=== PATIENT | male | born 1930 | race Two or more races ===

== ENCOUNTER 2017-05-25 23:01 | Emergency (ER) | payer MEDICARE ==
[~2017-05-25] VITALS: Ht 160 cm; Wt 53.5 kg
[2017-05-25] MEDS ORDERED: HYDRALAZINE HCL10 MG ORAL (23:15)
[2017-05-25] MEDS ORDERED: ASPIRIN81 MG ORAL (23:15)
[2017-05-25] MEDS ORDERED: ATORVASTATIN CA40 MG ORAL (23:15)
[2017-05-25] MEDS ORDERED: BUMETANIDE1 MG ORAL (23:15)
[2017-05-25] MEDS ORDERED: OMEPRAZOLE20 M2 ORAL (23:15)
[2017-05-25] MEDS ORDERED: ELIQUIS2.5 MG PO (23:15)
[2017-05-25] MEDS ORDERED: AMLODIPINE BESY10 MG ORAL (23:15)
[2017-05-25] MEDS ORDERED: ISOSORBIDE MONO20 MG PO (23:15)
[2017-05-25] MEDS ORDERED: TAMSULOSIN HCL0.4 MG ORAL (23:15)
[2017-05-25 23:30] VITALS: BP 125/75
[2017-05-25 23:45] LABS: BASOPHILS % (AUTO) 1.9 % (0.0-2.0); EOSINOPHILS % (AUTO) 5.6 % (0.0-3.0); LYMPHOCYTES % (AUTO) 21.7 % (20.0-45.0); MEAN CORPUSCULAR HEMOGLOBIN 33.5 PG (27.0-31.0); MEAN CORPUSCULAR HGB CONC 34.3 G/DL (32.0-36.0); MEAN CORPUSCULAR VOLUME 98 FL (80-99); MEAN PLATELET VOLUME 5.1 FL (6.5-10.1); MONOCYTES % (AUTO) 12.9 % (1.0-10.0); NEUTROPHILS % (AUTO) 57.9 % (45.0-75.0); PLATELET COUNT 179 K/UL (150-450); RED BLOOD COUNT 2.62 M/UL (4.70-6.10); RED CELL DISTRIBUTION WIDTH 14.4 % (11.6-14.8); WHITE BLOOD COUNT 7.4 K/UL (4.8-10.8)
[2017-05-25] MEDS ORDERED: Diltiazem 25mg/5ml IV ONE (23:45)
[2017-05-25 23:52] LABS: INR 1.1 (0.9-1.1); PROTHROMBIN TIME 11.2 SEC (9.30-11.50)
[2017-05-25 23:56] LABS: TROPONIN I < 0.30 ng/mL (<=0.30)
[2017-05-25 23:59] LABS: ALANINE AMINOTRANSFERASE 23 U/L (3-41); ALBUMIN/GLOBULIN RATIO 1.1 (1.0-2.7); ASPARTATE AMINO TRANSFERASE 36 U/L (5-40); CALCIUM 8.9 mg/dL (8.6-10.2); CARBON DIOXIDE 24 mEQ/L (20-30); CREATININE 1.7 mg/dL (0.7-1.2); HEMOLYSIS 2
[2017-05-26] LABS: ANION GAP 12 (5-15); CHLORIDE 101 mEQ/L (98-107); POTASSIUM 3.9 mEQ/L (3.4-4.9); SODIUM 137 mEQ/L (135-145)
[2017-05-26 00:11] LABS: CKMB 1.8 ng/mL (< 6.7)
[2017-05-26 01:18] VITALS: BP 107/65
--- NOTE | 2017-05-26 02:15 | Emergency Room Report ---
History of Present Illness General Chief Complaint: Chest Pain Source: Patient, Medical Record, EMS Present Illness HPI Is an 86-year-old gentleman with a history of coronary disease with multiple stents, bowel replacement and previous MIs. Patient presents with chief complaint of chest pain. Onset was about 2 hours ago. Pain is substernal. No radiation. Pain is 7/10. No diaphoresis. No nausea no vomiting. Mild shortness breath. He called 911 and was given aspirin and nitroglycerin. Pain is better now. No exertional component. Allergies: Coded Allergies: IBUPROFEN (Verified Allergy, Unknown, 05/25/17) LISINOPRIL (Verified Allergy, Unknown, 05/25/17) LOVASTATIN (Verified Allergy, Unknown, 05/25/17) OXYBUTYNIN (Verified Allergy, Unknown, 05/25/17) Patient History Past Medical History: see triage record, old chart reviewed Pertinent Family History: none Social History: Denies: smoking - History of Immunizations: other Reviewed Nursing Documentation: PMH: Agreed, PSxH: Agreed Nursing Documentation-PMH Past Medical History: No History, Except For Hx Cardiac Problems: Yes - A. fib, Anemia,Hyperlipidemia, CAD, Aortic valve discorder, Atherosclerosis Hx Hypertension: Yes Review of Systems Eye: Denies: blurred vision, eye pain ENT: Denies: ear pain, nose congestion, throat swelling Respiratory: Reports: shortness of breath, Denies: cough Cardiovascular: Reports: chest pain, Denies: palpitations Gastrointestinal: Denies: abdominal pain, diarrhea, nausea, vomiting Musculoskeletal: Denies: back pain, joint pain Skin: Denies: rash Neurological: Denies: headache, numbness Endocrine: Denies: increased thirst, increased urine Hematologic/Lymphatic: Denies: easy bruising All Other Systems: negative except mentioned in HPI Physical Exam Vital Signs Date Time Temp Pulse Resp B/P Pulse Ox O2 Delivery O2 Flow Rate FiO2 05/25/17 23:02 98.4 126 16 117/63 98 Room Air vitals with tachycardia Sp02 EP Interpretation: reviewed, normal General Appearance: no apparent distress, alert, Chronically Ill Head: normocephalic, atraumatic Eyes: bilateral eye EOMI, bilateral eye PERRL ENT: hearing grossly normal, normal pharynx Neck: full range of motion, supple, no meningismus Respiratory: chest non-tender, normal breath sounds, rales Cardiovascular #1: no murmur, tachycardia, irregularly irregular Gastrointestinal: normal bowel sounds, non tender, no mass, no organomegaly, no bruit, non-distended Musculoskeletal: back normal, normal range of motion, swelling - 1+ pitting edema Neurologic: alert, oriented x3 Psychiatric: mood/affect normal Skin: warm/dry Procedures Critical Care Time Critical Care Time Critical care is mandated in this patient who presented with chest pain, rapid A. fib and CHF. Patient require my urgent intervention to attenuate the risks of metabolic collapse which may lead to cardiovascular collapse and . Critical care time is 35 minutes excluding any reportable procedure. Critical care time included evaluation, multiple reevaluation, looking at old charts, interpreting laboratory and diagnostic data, discussing case with patient and family and consultants, and charting. Medical Decision Making Diagnostic Impression: Primary Impression: Chest pain Qualified Codes: R07.9 - Chest pain, unspecified Additional Impressions: Rapid atrial fibrillation CHF exacerbation Qualified Codes: I50.9 - Heart failure, unspecified Chronic kidney disease Qualified Codes: N18.9 - Chronic kidney disease, unspecified Anemia in chronic kidney disease Qualified Codes: N18.9 - Chronic kidney disease, unspecified; D63.1 - Anemia in chronic kidney disease ER Course Patient present with chest pain. This may be secondary to his rapid A. fib. Also may explain and CHF. First set of troponin is negative. Patient heart rate is better controlled. Pain improved. Lasix given. Blood pressure improved. I discussed the case with Dr. Holt. . He accepted the patient for transfer back to [place]. Patient anemia is at baseline. Laboratory Tests Test 05/25/17 23:17 White Blood Count 7.4 K/UL (4.8-10.8) Red Blood Count 2.62 M/UL (4.70-6.10) L Hemoglobin 8.8 G/DL (14.2-18.0) L Hematocrit 25.6 % (42.0-52.0) L Mean Corpuscular Volume 98 FL (80-99) Mean Corpuscular Hemoglobin 33.5 PG (27.0-31.0) H Mean Corpuscular Hemoglobin Concent 34.3 G/DL (32.0-36.0) Red Cell Distribution Width 14.4 % (11.6-14.8) Platelet Count 179 K/UL (150-450) Mean Platelet Volume 5.1 FL (6.5-10.1) L Neutrophils (%) (Auto) 57.9 % (45.0-75.0) Lymphocytes (%) (Auto) 21.7 % (20.0-45.0) Monocytes (%) (Auto) 12.9 % (1.0-10.0) H Eosinophils (%) (Auto) 5.6 % (0.0-3.0) H Basophils (%) (Auto) 1.9 % (0.0-2.0) Prothrombin Time 11.2 SEC (9.30-11.50) Prothromb Time International Ratio 1.1 (0.9-1.1) Activated Partial Thromboplast Time 28 SEC (23-33) Sodium Level 137 mEQ/L (135-145) Potassium Level 3.9 mEQ/L (3.4-4.9) Chloride Level 101 mEQ/L (98-107) Carbon Dioxide Level 24 mEQ/L (20-30) Anion Gap 12 (5-15) Blood Urea Nitrogen 30 mg/dL (7-23) H Creatinine 1.7 mg/dL (0.7-1.2) H Estimat Glomerular Filtration Rate mL/min (>60) Glucose Level 130 mg/dL (74-106) H Calcium Level 8.9 mg/dL (8.6-10.2) Total Bilirubin 0.5 mg/dL (0.0-1.2) Aspartate Amino Transf (AST/SGOT) 36 U/L (5-40) Alanine Aminotransferase (ALT/SGPT) 23 U/L (3-41) Alkaline Phosphatase 97 U/L (40-129) Total Creatine Kinase 64 U/L (38-174) Creatine Kinase MB 1.8 ng/mL (< 6.7) Creatine Kinase MB Relative Index 2.8 Troponin I < 0.30 ng/mL (<=0.30) Pro-B-Type Natriuretic Peptide 2019 pg/mL (0-450) H Total Protein 7.0 g/dL (6.6-8.7) Albumin 3.8 g/dL (3.5-5.2) Globulin 3.2 g/dL Albumin/Globulin Ratio 1.1 (1.0-2.7) Lab Results Impression labs with elevated BNP and low hemoglobin EKG Diagnostic Results Rate: tachycardiac Rhythm: other - Nonspecific ST changes. A. fib ASA given to the pt in ED: No - Given by EMS Rhythm Strip Diag. Results Rhythm Strip Time: 02:14 EP Interpretation: yes Rate: 91 Rhythm: no PVC's, other - A. fib Chest X-Ray Diagnostic Results Chest X-Ray Diagnostic Results : Chest X-Ray Ordered: Yes # of Views/Limited/Complete: 1 View Indication: Chest Pain EP Interpretation: Yes Interpretation: no consolidation, no pneumothorax, other - Cardiomegaly, vascular congestion Impression: Other - CHF Interpreting ER Provider: Electronically signed by German Dinero MD Last Vital Signs Date Time Temp Pulse Resp B/P Pulse Ox O2 Delivery O2 Flow Rate FiO2 05/26/17 01:18 98.4 101 23 107/65 98 Room Air Status: improved Disposition: XFER SHT-TRM HOSP Condition: Stable Referrals: [facility] (PCP) GERMAN DINERO M.D. May 26, 2017 02:14
[2017-05-26] MEDS ORDERED: Diltiazem 25mg/5ml IV ONE (02:30)
[2017-05-26 02:31] VITALS: BP 122/71
[2017-05-26 02:36] VITALS: BP 101/60
[2017-05-26 03:50] VITALS: BP 108/71
--- NOTE | 2017-05-26 12:09 | Diagnostic Imaging Report ---
Indication: Dyspnea Comparison: None A single view chest radiograph was obtained. Findings: Patchy interstitial appearing infiltrates are present within the lungs. Differential includes interstitial edema. Heart is mildly enlarged. Lung lines are low. Sternotomy noted. Impression: Interstitial infiltrates versus edema. Please correlate clinically
== END 2017-05-26 03:50 | disposition short-term general hospital (02) ==
LOC: EDBD 23:01 → EMR 23:43
DX: R07.89 Other chest pain (principal); I48.91 Unspecified atrial fibrillation; I50.9 Heart failure, unspecified; I12.9 Hypertensive chronic kidney disease with stage 1 through stage 4 chronic kidney disease, or unspecified chronic kidney disease; N18.9 Chronic kidney disease, unspecified; I25.10 Atherosclerotic heart disease of native coronary artery without angina pectoris; E78.5 Hyperlipidemia, unspecified; D63.1 Anemia in chronic kidney disease; Z88.6 Allergy status to analgesic agent; Z88.8 Allergy status to other drugs, medicaments and biological substances
CPT/HCPCS: 36415; 71010; 80053; 82550; 82553; 83880; 84484; 85025; 85610; 85730; 93005; 96374; 96375; 96376; 99291; J1940